=== PATIENT | male | born 1975 | race Caucasian/White ===

== ENCOUNTER → 2017-06-12 | Outpatient (CLI) | payer OTHER ==
[~2017-06-12] MED LIST: AMOXICILLIN500 M1 PO; AMOXICILLIN500 MG PO; ANAPROX DS550 MG PO; CLONAZEPAM0.25 MG PO; DAYPRO600 M1 PO; MOTRIN800 MG PO; Motrin,Rufen800 MG PO; NORCO 5-325 TA1 EACH PO; ROBAXIN750 MG PO; TRAMADOL HCL50 MG PO; ULTRAM50 MG PO; VICODIN 500 MG-1 TAB PO; VICODIN ES 7501 TAB PO; ZOLOFT50 MG PO
== END | disposition home or self-care (01) ==
LOC: US 12:30
DX: M79.604 Pain in right leg (principal)

== ENCOUNTER 2017-09-27 15:21 | Emergency (ER) | payer OTHER ==
[~2017-09-27] VITALS: Wt 83.9 kg
[2017-09-27 15:30] VITALS: BP 150/85
== END 2017-09-27 16:17 | disposition home or self-care (01) ==
LOC: ED 15:21
DX: S93.491A Sprain of other ligament of right ankle, initial encounter (principal); Z79.899 Other long term (current) drug therapy; X58.XXXA Exposure to other specified factors, initial encounter; Y93.9 Activity, unspecified; Y92.89 Other specified places as the place of occurrence of the external cause; Y99.8 Other external cause status

== ENCOUNTER → 2021-05-22 | Outpatient (CLI) | payer BC | END | disposition home or self-care (01) | LOC: COVID19 16:37 | PROVIDERS: ATTEND Internal Medicine | DX: Z20.822 Contact with and (suspected) exposure to COVID-19 (principal) ==